=== PATIENT | female | born 1985 ===

== ENCOUNTER 2019-06-17 15:30 | Inpatient (IN) | payer OTHER ==
[~2019-06-17] VITALS: Ht 160 cm; Wt 88.5 kg
[2019-06-21] MEDS ORDERED: PRENATAL 19 TA1 EAC1 PO (20:01)
== END 2019-06-24 11:55 | DRG 807 ==
LOC: O/R 15:30 → LDR 06-21 19:58 → OB/GYN 06-21 19:58
PROVIDERS: ADMIT Obstetrics & Gynecology
PROC: 4A1HXCZ Monitoring of Products of Conception, Cardiac Rate, External Approach (ICD-10-PCS; 2019-06-21)
PROC: 10E0XZZ Delivery of Products of Conception, External Approach (ICD-10-PCS; principal; 2019-06-22)
PROC: 0UQMXZZ Repair Vulva, External Approach (ICD-10-PCS; 2019-06-22)
DX: O70.0 First degree perineal laceration during delivery (principal); Z37.0 Single live birth; Z3A.39 39 weeks gestation of pregnancy